=== PATIENT | female | born 1980 | race Caucasian/White ===

== ENCOUNTER 2016-07-14 11:13 | Outpatient (CLI) | payer OTHER | END 2016-07-14 11:14 | disposition home or self-care (01) | DX: R10.2 Pelvic and perineal pain (principal) ==

== ENCOUNTER 2016-08-06 08:00 | Outpatient (CLI) | payer OTHER | END 2016-08-06 23:59 | disposition home or self-care (01) | DX: R10.2 Pelvic and perineal pain (principal) ==

== ENCOUNTER 2016-08-08 06:13 | Day surgery (SDC) | payer OTHER ==
[2016-08-08] MEDS ORDERED: ceFAZolin 2 GM/50 ML 50 ML IV ONE (06:33)
[2016-08-08] MEDS ORDERED: LACTATED RINGERS 1,000 ML IV ONE ×3 (06:46→08:30)
[2016-08-08] MEDS ORDERED: SCOPOLAMINE PATCH TOP ONE (07:23)
[2016-08-08] MEDS ORDERED: KETOROLAC 30 MG/ML VIAL IVP ONE (08:00)
[2016-08-08] MEDS ORDERED: raNITIdine INJ 25 MG/ML VIAL IV ONE (08:00)
[2016-08-08] MEDS ORDERED: MIDAZOLAM 2 MG/2 ML VIAL IVP ONE (08:00)
[2016-08-08] MEDS ORDERED: fentaNYL 100 MCG/2 ML VIAL IVP ONE (08:00)
[2016-08-08] MEDS ORDERED: LIDOCAINE-MPF 2% 5 ML VIAL IM ONE (08:00)
[2016-08-08] MEDS ORDERED: PROPOFOL 200 MG/20 ML VIAL IVP ONE (08:00)
[2016-08-08] MEDS ORDERED: ESMOLOL 100 MG/10 ML VIAL IVP ONE (08:00)
[2016-08-08] MEDS ORDERED: DEXAMETHASONE 4 MG/ML VIAL IVP ONE (08:00)
[2016-08-08] MEDS ORDERED: METOCLOPRAMIDE 10 MG/2 ML VIAL IVP ONE (08:00)
[2016-08-08] MEDS ORDERED: ROCURONIUM 50 MG/5 ML VIAL IVP ONE (08:00)
[2016-08-08] MEDS ORDERED: ONDANSETRON 4 MG/2 ML VIAL IVP ONE (08:00)
[2016-08-08] MEDS ORDERED: diphenhydrAMINE INJ 50 MG/ML VIAL IVP ONE (08:00)
[2016-08-08] MEDS ORDERED: GLYCOPYRROLATE 1 MG/5 ML VIAL IVP ONE (08:00)
[2016-08-08] MEDS ORDERED: BUPIVACAINE 0.25% PF 30 ML VIAL SUBQ ONE ×2 (08:09)
[2016-08-08] MEDS: MEPERIDINE 50 MG/ML SYRINGE ONE ×2 (09:00→09:15)
[2016-08-08] MEDS ORDERED: MIDAZOLAM 2 MG/2 ML VIAL ONE (09:37)
[2016-08-08] MEDS ORDERED: oxyCOD/ACETAMIN 5 MG/325 MG TABLET PO ONE (11:22)
== END 2016-08-08 06:14 | disposition home or self-care (01) ==
PROC: 0U5F4ZZ Destruction of Cul-de-sac, Percutaneous Endoscopic Approach (ICD-10-PCS; principal; 2016-08-08 07:30)
DX: N83.8 Other noninflammatory disorders of ovary, fallopian tube and broad ligament (principal); N73.6 Female pelvic peritoneal adhesions (postinfective); N80.3 Endometriosis of pelvic peritoneum; I47.1 Supraventricular tachycardia; F32.9 Major depressive disorder, single episode, unspecified; F41.9 Anxiety disorder, unspecified
CPT/HCPCS: 58662; 93005; A9270; J0690; J3490; J7120

== ENCOUNTER 2017-04-01 11:19 | Emergency (ER) | payer OTHER ==
[2017-04-01 11:31] VITALS: BP 124/76
--- NOTE | 2017-04-01 13:41 | ED Physician Documentation ---
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 She has had some light pink discharge since then. She is also noticed the fullness to her breasts reducing. Review of Systems Constitutional: denies: Fever Eyes: denies: Decreased vision Ears: denies: Ear pain Nose: reports: Congestion Throat: denies: Sore throat Cardiac: denies: Chest pain / pressure, Palpitations Respiratory: reports: Cough. denies: Dyspnea GI: reports: Nausea. denies: Abdominal Pain, Vomiting, Constipation, Diarrhea : reports: Discharge. denies: Dysuria, Frequency PD PAST MEDICAL HISTORY - Past Medical History Past Medical History: Yes Cardiovascular: None Respiratory: None Endocrine/Autoimmune: None GI: None : None HEENT: None Psych: Depression, Anxiety Musculoskeletal: None Derm: None - Past Surgical History Past Surgical History: Yes Ortho: Other - Present Medications Home Medications: Ambulatory Orders Medication Instructions Recorded Confirmed Fexofenadine HCl [Sulma Allergy] 180 mg PO DAILY 09/25/14 08/06/16 Sertraline HCl [Zoloft] 150 mg PO DAILY 09/25/14 08/06/16 - Allergies Allergies/Adverse Reactions: Allergies Allergy/AdvReac Type Severity Reaction Status Date / Time promethazine HCl * AdvReac Severe Anxiety Verified 04/01/17 11:31 [From Phenergan] - Social History Does the pt smoke?: No Smoking Status: Never smoker Does the pt drink ETOH?: No Does the pt have substance abuse?: No - Immunizations Immunizations are current?: Yes PD ED PE NORMAL - Vitals Vital signs reviewed: Yes (Normal) - General General: No acute distress, Well developed/nourished - HEENT HEENT: Atraumatic, PERRL, EOMI, Ears normal, Moist mucous membranes - Neck Neck: Supple, no meningeal sign - Cardiac Cardiac: RRR, No murmur - Respiratory Respiratory: No respiratory distress, Clear bilaterally - Abdomen Abdomen: Soft, Non tender - Back Back: No CVA TTP, No spinal TTP - Derm Derm: Normal color, Warm and dry, No rash - Extremities Extremities: No deformity, No edema - Neuro Neuro: No motor deficit, No sensory deficit - Psych Psych: Normal mood, Normal affect Results - Vitals Vitals: Vital Signs - 24 hr 04/01/17 11:27 Temperature 36.6 C Heart Rate 76 Respiratory 18 Rate Blood Pressure 124/76 O2 Saturation 100 Oxygen O2 Source Room air - Labs Labs: Laboratory Tests 04/01/17 04/01/17 11:45 11:45 Serum HCG, Qual Cancelled HCG, Quant 14126.00 - Rads (name of study) ob ultrasound Radiology: Prelim report reviewed (Impression: 7 week 5 day pole with no cardiac activity and irregular gestational sac consistent with intrauterine demise.), EMP read indepedently, See rad report PD MEDICAL DECISION MAKING - ED course Complexity details: reviewed results, re-evaluated patient, considered differential, d/w patient ED course: 36-year-old female with early appears to have loss with retained products. She has had prior miscarriage and she has not developed any type of cramping pain as yet. She will attempt to pass the products conservatively and will pursue intervention with her POWER GENERATION TECHNICIAN doctor next week if needed. Departure - Departure Disposition: 01 Home, Self Care Clinical Impression: Incomplete Condition: Stable Instructions: ED Miscarriage Incom Follow-Up: Barrie Mar MD [Primary Care Provider] - Fernando Dobbins MD [Provider Admit Priv/Credential] - Discharge Date/Time: 04/01/17 13:58
--- NOTE | 2017-04-02 16:18 | Ultrasound Report ---
FIRST TRIMESTER OB ULTRASOUND: 04/01/2017 CLINICAL INDICATION: Bleeding in early . TECHNIQUE: Transabdominal pelvic ultrasound performed for global evaluation. Transvaginal pelvic ultr asound performed for detailed evaluation. Real-time scanning performed and static images obtained. FINDINGS: The uterus is retroverted. There is a gestational sac with pole within the endometri al canal. No cardiac activity is seen. The gestational sac is irregular. The appearance is comp atible with an in progress. The ovaries are unremarkable, with the right measuring 3.6 x 2.5 x 2.4 cm, and the left measuring 3.2 x 2.0 x 1.9 cm. No free fluid is present. IMPRESSION: IRREGULAR GESTATIONAL SAC. NO CARDIAC MOTION IDENTIFIED, COMPATIBLE WITH INTRAUTER INE DEMISE/ IN PROGRESS. CRITICAL RESULT: RESULTS CALLED TO DR. HARLEY IN THE EMERGENCY DEPARTMENT ON 04/01/2017 AT 1 PM. JOB #: [id number] EXT JOB #:[id number]
== END 2017-04-01 13:58 | disposition home or self-care (01) ==
LOC: ED 11:19
DX: O03.4 Incomplete spontaneous abortion without complication (principal)
CPT/HCPCS: 36415; 76801; 76817; 84702; 84703; 99283; 99284

== ENCOUNTER 2017-04-08 10:17 | Outpatient (CLI) | payer OTHER | END 2017-04-08 10:18 | disposition home or self-care (01) | LOC: LAB 10:17 | PROVIDERS: ATTEND Obstetrics & Gynecology | DX: O03.9 Complete or unspecified spontaneous abortion without complication (principal) | CPT/HCPCS: 36415; 84702 ==

== ENCOUNTER 2017-04-16 09:10 | Outpatient (CLI) | payer OTHER | END 2017-04-16 09:11 | disposition home or self-care (01) | LOC: LAB 09:10 | PROVIDERS: ATTEND Obstetrics & Gynecology | DX: O03.9 Complete or unspecified spontaneous abortion without complication (principal) | CPT/HCPCS: 36415; 84702 ==

== ENCOUNTER 2019-01-05 08:00 | Outpatient (CLI) | payer OTHER ==
[2019-01-05 18:36] LABS: BASOPHILS # (AUTO) 0.1 10^3/uL (0.0-0.1); BASOPHILS % (AUTO) 0.7 %; EOSINOPHILS # (AUTO) 0.2 10^3/uL (0.0-0.7); HGB - HEMOGLOBIN 11.7 g/dL (12.0-16.0); LYMPHOCYTES # (AUTO) 1.9 10^3/uL (1.5-3.5); LYMPHOCYTES % (AUTO) 21.9 %; MEAN CORPUSCULAR HEMOGLOBIN 26.1 pg (27.0-31.0); MEAN CORPUSCULAR HGB CONC 31.1 g/dL (32.0-36.0); MEAN CORPUSCULAR VOLUME 83.7 fL (81.0-99.0); MONOCYTES # (AUTO) 0.4 10^3/uL (0.0-1.0); MONOCYTES % (AUTO) 5.1 %; NEUTROPHILS % (AUTO) 69.4 %; PLT - PLATELET COUNT 265 10^3/uL (130-450); RED BLOOD COUNT 4.49 10^6/uL (4.20-5.40); WHITE BLOOD COUNT 8.7 x10^3/uL (4.8-10.8)
[2019-01-05 19:18] LABS: ALBUMIN 3.8 g/dL (3.2-5.5); ALBUMIN/GLOBULIN RATIO 1.2 (1.0-2.2); ALKALINE PHOSPHATASE 48 IU/L (42-121); ALT ALANINE AMINOTRANSFERASE 15 IU/L (10-60); AST ASPARTATE AMINOTRANSFERASE 15 IU/L (10-42); BILIRUBIN,TOTAL 0.7 mg/dL (0.2-1.0); BUN - BLOOD UREA NITROGEN 12 mg/dL (6-20); CALCIUM 8.6 mg/dL (8.5-10.3); CARBON DIOXIDE - CO2 19 mmol/L (21-32); CHLORIDE 110 mmol/L (101-111); CHOL/HDL RATIO 3.3 (<4.4); CHOLESTEROL 169 mg/dL; CREATININE 0.6 mg/dL (0.4-1.0); GFR - MDRD 111 (>89); GLUCOSE 105 mg/dL (70-100); HDL CHOLESTEROL 51 mg/dL; LDL CHOLESTEROL,CALCULATED 95 mg/dL; LDL/HDL RATIO 1.9 (<4.4); SODIUM 139 mmol/L (135-145); VLDL CHOLESTEROL 23 mg/dL
== END 2019-01-05 23:59 | disposition home or self-care (01) ==
LOC: LAB.N 08:00
PROVIDERS: ATTEND Family Medicine
DX: Z00.00 Encounter for general adult medical examination without abnormal findings (principal)
CPT/HCPCS: 36415; 80050; 80061; 83721

== ENCOUNTER 2019-02-02 16:56 | Outpatient (CLI) | payer OTHER ==
--- NOTE | 2019-02-03 15:08 | Ultrasound Report ---
Reason: TEST POSITIVE Procedure Date: 02/02/2019 Accession Number: [id number] / [id number] Procedure: US - OB First Trimester CPT Code: FULL RESULT: EXAM: FIRST TRIMESTER OBSTETRIC ULTRASOUND (Less than 11 weeks) EXAM DATE: 02/02/2019 04:40 PM. CLINICAL HISTORY: TEST POSITIVE. LMP: 12/08/2018. COMPARISONS: OB FIRST TRIMESTER 04/01/2017 12:09 PM. TECHNIQUE: Transabdominal and transvaginal ultrasound examination with static image documentation. CLINICAL DATES: EGA 8 weeks 0 days with SURAJ 09/14/2019 based on LMP. ASSESSMENT: Gestational Sac: Single intrauterine. Mean gestational sac diameter: 23 mm = 7 weeks 2 days. Embryo: CRL (crown-rump length) 18 mm = 8 weeks 2 days. Cardiac activity: Not visualized. Yolk sac: 4 mm. Amniotic fluid: Not accurately assessed at this gestational age. Early placenta: Not visible at this gestational age. Other: Moderate perigestational fluid collection measuring up to 2.2 x 2.5 cm. MATERNAL STRUCTURES: Uterus: Retroverted. Unremarkable. Cervix: Closed. Right Ovary/Adnexa: The ovary measures 2.0 x 1.3 x 1.3 cm, volume 1.7 cc. Unremarkable. Left Ovary/Adnexa: The ovary measures 3.2 x 1.2 x 0.8 cm, volume 1.5 cc. Unremarkable. Free Fluid: None. Other: None. IMPRESSION: 1. Single intrauterine at EGA 8 weeks 2 days with SURAJ 09/12/2019 based on crown-rump length, which is concordant with clinical dates. 2. Embryonic cardiac activity is not detected. This is concerning for failed first trimester . Recommend correlation with serial quantitative beta-hCG with short-term follow-up imaging as indicated. 3. Moderate perigestational fluid collection. RADIA
== END 2019-02-02 16:57 | disposition home or self-care (01) ==
LOC: DI 16:56
PROVIDERS: ATTEND Family Medicine
DX: Z32.01 Encounter for pregnancy test, result positive (principal)
CPT/HCPCS: 76801; 76817

== ENCOUNTER 2019-02-04 15:15 | Outpatient (CLI) | payer OTHER | END 2019-02-04 15:16 | disposition home or self-care (01) | LOC: LAB.N 15:15 | PROVIDERS: ATTEND Family Medicine | DX: N91.2 Amenorrhea, unspecified (principal) | CPT/HCPCS: 36415; 84702 ==

== ENCOUNTER 2019-02-17 14:24 | Outpatient (CLI) | payer OTHER | END 2019-02-17 23:59 | disposition home or self-care (01) | LOC: LAB.N 14:24 | PROVIDERS: ATTEND Obstetrics & Gynecology | DX: O03.9 Complete or unspecified spontaneous abortion without complication (principal) | CPT/HCPCS: 36415; 84702 ==

== ENCOUNTER 2019-02-26 09:54 | Outpatient (CLI) | payer OTHER | END 2019-02-26 23:59 | disposition home or self-care (01) | LOC: LAB.N 09:54 | PROVIDERS: ATTEND Obstetrics & Gynecology | DX: O03.9 Complete or unspecified spontaneous abortion without complication (principal) | CPT/HCPCS: 36415; 84702 ==

== ENCOUNTER 2019-03-03 08:00 | Outpatient (CLI) | payer OTHER ==
[2019-03-03 22:02] LABS: TRICHOMONAS VAGINALIS DNA NEGATIVE (NEGATIVE)
== END 2019-03-03 23:59 | disposition home or self-care (01) ==
LOC: LAB.R 08:00
PROVIDERS: ATTEND Obstetrics & Gynecology
DX: Z30.9 Encounter for contraceptive management, unspecified (principal)
CPT/HCPCS: 87491; 87591; 87661

== ENCOUNTER 2019-12-31 08:15 | Outpatient (CLI) | payer OTHER | END 2019-12-31 23:59 | disposition home or self-care (01) | LOC: LAB 08:15 | PROVIDERS: ATTEND Family Medicine | DX: Z20.828 Contact with and (suspected) exposure to other viral communicable diseases (principal) | CPT/HCPCS: 81599 ==

== ENCOUNTER 2020-01-02 11:05 | Emergency (ER) | payer OTHER ==
[2020-01-02] MEDS ORDERED: SODIUM CHLORIDE 0.9% 2,000 ML IV STA (12:19)
[2020-01-02] MEDS ORDERED: HYDROmorphone 1 MG/ML CARPUJECT IVP STA (12:37)
--- NOTE | 2020-01-02 12:46 | ED Physician Documentation ---
History of Present Illness - Stated complaint Stated Complaint: HEADACHE/DIZZINESS - Chief complaint Chief Complaint: General - History obtained from History obtained from: Patient - History of Present Illness Timing: How many days ago (3) Pain level max: 10 Pain level now: 10 - Additonal information Additional information: 39-year-old female presents the emergency department stating that she had a lumbar puncture performed 3 days ago at [facility] in [place]. This was for papilledema and possible increased intracranial pressure. Her opening pressure was reportedly 27, the removed 18 mL's of CSF and dropped her pressure down to 13. Has had increasing headaches over the past 3 days. Tried Toradol and Reglan without relief. Has been taking Excedrin with caffeine at home without relief. Was seen at [facility] last night and given IV fluids as well as Toradol, without relief. She is unable to stand fully up. It was a postural headache. Feels better lying flat. No fevers. Review of Systems Ten Systems: 10 systems reviewed and negative Constitutional: denies: Fever, Chills Eyes: denies: Decreased vision, Photophobia Ears: denies: Ear pain Throat: denies: Sore throat Cardiac: denies: Chest pain / pressure GI: denies: Abdominal Pain, Nausea, Vomiting, Diarrhea Skin: denies: Rash Musculoskeletal: denies: Neck pain, Back pain Neurologic: denies: Focal weakness, Numbness, Difficulty speaking, Confused, Altered mental status, Head injury, LOC PD PAST MEDICAL HISTORY - Past Medical History Past Medical History: Yes Cardiovascular: None Respiratory: None Neuro: Headaches Endocrine/Autoimmune: None GI: None 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 : None HEENT: None Psych: Depression, Anxiety Musculoskeletal: None Derm: None - Past Surgical History Past Surgical History: Yes Ortho: Other - Present Medications Home Medications: Ambulatory Orders Medication Instructions Recorded Confirmed Fexofenadine HCl [Sulma Allergy] 180 mg PO DAILY 09/25/14 08/06/16 Sertraline HCl [Zoloft] 150 mg PO DAILY 09/25/14 08/06/16 Butalb/Acetaminophen/Caffeine 1 cap PO Q8H PRN #10 capsule 01/02/20 [Fioricet 50-300-40 mg Capsule] Promethazine [Phenergan] 25 mg PO Q6H PRN #10 tab 01/02/20 - Allergies Allergies/Adverse Reactions: Allergies Allergy/AdvReac Type Severity Reaction Status Date / Time promethazine HCl * AdvReac Severe Anxiety Verified 04/01/17 11:31 [From Phenergan] metoclopramide [From Reglan] AdvReac Anxiety Verified 01/02/20 11:18 - Social History Does the pt smoke?: No Smoking Status: Never smoker Does the pt drink ETOH?: No Does the pt have substance abuse?: No - Immunizations Immunizations are current?: Yes PD ED PE NORMAL - Vitals Vital signs reviewed: Yes - General General: Alert and oriented X 3, No acute distress, Well developed/nourished - HEENT HEENT: Atraumatic, PERRL, Moist mucous membranes - Neck Neck: Supple, no meningeal sign - Cardiac Cardiac: RRR, Strong equal pulses - Respiratory Respiratory: No respiratory distress, Clear bilaterally - Abdomen Abdomen: Soft, Non tender, Non distended - Back Back: No spinal TTP - Derm Derm: Warm and dry - Extremities Extremities: No edema - Neuro Neuro: Alert and oriented X 3, district wire chief 2-12 intact, No motor deficit, No sensory deficit, Normal speech - Psych Psych: Normal mood, Normal affect Results - Vitals Vitals: Vital Signs - 24 hr 01/02/20 01/02/20 01/02/20 11:18 12:21 13:51 Temperature 36.6 C Heart Rate 85 86 80 Respiratory 16 96 H 18 Rate Blood Pressure 138/82 H 132/80 H 136/74 H O2 Saturation 98 97 99 01/02/20 15:16 Temperature 36.4 C L Heart Rate 84 Respiratory 16 Rate Blood Pressure 128/78 O2 Saturation 99 Oxygen O2 Source Room air PD MEDICAL DECISION MAKING - ED course Complexity details: reviewed results, re-evaluated patient, considered differential, d/w patient, d/w trousseau consultant ED course: Patient will require a blood patch. Discussed the case with anesthesia who recommends consulting neurology first. I spoke with neuro ophthalmology on-call for Dr. Gomez at [facility], they state that there are no issues receiving a blood patch at this time. Traci Miranda CRNA will come and perform the blood patch. Patient had good relief of her headache with a sphenopalatine ganglion block with 4% lidocaine. Anesthesia performed a blood patch. Patient tolerated well. Feels much better. Will prescribe Fioricet for home in case her headache returns. Patient counseled regarding signs and symptoms for which I believe and urgent re-evaluation would be necessary. Patient with good understanding of and agreement to plan and is comfortable going home at this time This document was made in part using voice recognition software. While efforts are made to proofread this document, sound alike and grammatical errors may occur. Departure - Departure Disposition: 01 Home, Self Care Clinical Impression: Post-dural puncture headache Condition: Good Instructions: ED Headache Post Spinal Tap W Patch Follow-Up: Amita Pelaez DO [Primary Care Provider] - Filiberto Gomez MD [Physician No Access] - 01/04/20 Prescriptions: Butalb/Acetaminophen/Caffeine [Fioricet 50-300-40 mg Capsule] 1 cap PO Q8H PRN #10 capsule PRN Reason: headache Promethazine [Phenergan] 25 mg PO Q6H PRN #10 tab PRN Reason: Nausea / Vomiting Comments: Please follow-up with Dr. Gomez's office on Saturday. Return if you worsen. Rest today and lie flat as much as possible. Discharge Date/Time: 01/02/20 15:16
[2020-01-02] MEDS ORDERED: LIDOCAINE TOPICAL 4% 50 ML BOTTLE TOP STA (12:48)
[2020-01-02] MEDS ORDERED: MIDAZOLAM 2 MG/2 ML VIAL IVP STA (13:22)
--- NOTE | 2020-01-02 14:13 | ANESTHESIA PROCEDURE NOTE ---
Diagnosis: spinal headache post LP Procedure: Epidural blood patch Height and Weight: Height 5 ft 4 in Weight (kg) 96.162 kg Body Mass Index 36.3 Vital Signs: Temp Pulse Resp BP Pulse Ox 36.6 C 85 16 138/82 H 98 01/02/20 11:18 01/02/20 11:18 01/02/20 11:18 01/02/20 11:18 01/02/20 11:18 Allergies promethazine HCl * [From Phenergan] Adverse Reaction (Severe, Verified 04/01/17 11:31) Anxiety IV Phenergan Anxiety and Agitation metoclopramide [From Reglan] Adverse Reaction (Verified 01/02/20 11:18) Anxiety Requesting Provider: Dr. Robert ASA classification: 2-Mild systemic disease Is this case an emergency?: Yes Anes. Monitoring and Equipment: Sterile prep and drape Anes. Procedure Start Time: 13:10 Anes. Procedure Stop Time: 13:35 Procedure Notes: Patient consented for epidural blood patch, sitting, chloroprep to lumbar area. Local 1% 5cc, L4/5 interspace with 17g Tu needle, ROSARIO with NS at 10cm, blood drawn sterile technique by PRINTING MACHINIST from left AC. Blood injected easily through epidural needle to total 20cc, no patient complaints. Patient states STEVENS 1/10 pain post procedure. Instructed to lay flat for 1 hour and then no heavy lifting straining fro 24 hours. Call if STEVENS returns and follow up with neurologist on Saturday.
[2020-01-02 15:18] VITALS: BP 128/78
== END 2020-01-02 15:16 | disposition home or self-care (01) ==
LOC: ED 11:05
DX: G97.1 Other reaction to spinal and lumbar puncture (principal)
CPT/HCPCS: 96374; 96375; 99283; 99285; J1170; 62273; 80048; 85025

== ENCOUNTER 2020-02-16 12:19 | Outpatient (CLI) | payer OTHER ==
--- NOTE | 2020-02-17 12:38 | Mammography Report ---
BILATERAL DIGITAL SCREENING MAMMOGRAM WITH AUGMENTATION: 02/16/2020 CLINICAL: Baseline exam. No prior exams were available for comparison. The tissue of both breasts is heterogeneously dense. T his may lower the sensitivity of mammography. Bilateral breast implants are intact. No significant masses, calcifications, or other findings are seen in either breast. IMPRESSION: NEGATIVE There is no mammographic evidence of malignancy. A 1 year screening mammogram is recommended. This exam was interpreted at Station ID: [id number]. NOTE: For mammograms, a report in lay terms will be sent to the patient. Approximately 15% of breast malignancies will not be visualized mammographically. In the management of a palpable breast mass, a negative mammogram must not discourage biopsy of a clinically suspicious lesion. Electronically Signed By: Hever li/virgil:02/16/2020 13:39:21 ACR BI-RADS Category 1: Negative 3341F PARENCHYMAL PATTERN: (D) - The breast(s) demonstrate(s) heterogeneously dense fibroglandular eitan colby. BI-RADS CATEGORY: (1) - 1 RECOMMENDATION: (ANNUAL) - Recommend routine annual screening mammography. [id number] 1 year screening LATERALITY: (B)
== END 2020-02-16 12:20 | disposition home or self-care (01) ==
LOC: DI.N 12:19
DX: Z12.31 Encounter for screening mammogram for malignant neoplasm of breast (principal); Z98.82 Breast implant status
CPT/HCPCS: 77067

== ENCOUNTER 2020-03-28 13:13 | Outpatient (CLI) | payer OTHER ==
--- NOTE | 2020-03-28 14:45 | CT Report ---
PROCEDURE: PELVIS WO INDICATIONS: FRACTURE OF COCCYX, INITIAL ENCOUNTER FOR CLOSED F TECHNIQUE: Noncontrast 3 mm axial sections acquired through the bony pelvis, with coronal and sagittal reformatt ing. For radiation dose reduction, the following was used: automated exposure control, adjustment of mA and/or kV according to patient size. COMPARISON: Prior pelvis plain film imaging 03/28/2020 reviewed.. FINDINGS: Image quality: Excellent. Bones: Previously identified pars interarticularis defects are seen at L5, allowing grade 2 anteroli sthesis of L5 on S1 with disc height reduction and also facet osteoarthritis contributing to likely l ikelihood of significant spinal and foraminal stenosis at this level Additionally, there is a nondisplaced diagonal fracture through the fifth sacral that can be visualiz ed on the sagittal reformatting should imaging from source axial data. This fracture is definite, but subtle. No adjacent soft tissue edema or hematoma is found. Soft tissues: Retroverted uterus, IUD centrally located within the endometrial canal when this is ta mary grace into account. IMPRESSION: 1. Bilateral L5 pars interarticularis defects, combining with degenerative disc height reduction but is prominent at L5-S1 results in ligamentous laxity allowing anterolisthesis of L5 on S1, with result ant likelihood of significant spinal and foraminal stenosis at that level. This appears chronic. 2. Subtle but definite diagonal vertically oriented fracture involving the S5 vertebral segment, just above the sacrococcygeal junction. No associated hematoma. 3. Retroverted uterus, centrally positioned IUD. Reviewed by: Ruben Curiel MD on 03/28/2020 2:44 PM PDT Approved by: Ruben Curiel MD on 03/28/2020 2:44 PM PDT Station ID: [id number]
--- NOTE | 2020-03-28 15:12 | CT Report ---
PROCEDURE: LUMBAR SPINE WO INDICATIONS: FRACTURE OF COCCYX, INITIAL ENCOUNTER FOR CLOSED F TECHNIQUE: Noncontrast 3 mm thick sections acquired from the T12 level to the sacrum. Sagittal and coronal refo rmats were constructed. For radiation dose reduction, the following was used: automated exposure co ntrol, adjustment of mA and/or kV according to patient size. COMPARISON: None. FINDINGS: Image quality: Excellent. Bones: No acute vertebral body compression fractures. No suspicious lytic or blastic bony lesions. T12-L1: Normal in appearance. L1-L2: Normal in appearance. L2-L3: Normal in appearance. L3-L4: Normal in appearance. L4-L5: The disc height is well-preserved. Mild facet arthropathy is seen. There is mild to moderate bilateral neuroforaminal narrowing seen. No significant central canal narrowing is seen. L5-S1: Grade 1 anterolisthesis is seen at this level, with associated bilateral L5 pars defects. Mo derate to severe loss of disc height is seen. Endplate irregularity and sclerosis can be seen. Ther e is moderate to severe bilateral neuroforaminal narrowing seen at this level, left worse than right. Compression is seen upon the exiting nerve roots. No significant central canal narrowing is seen. Soft tissues: No retroperitoneal masses or hematomas. Visualized aorta is normal in caliber. An IU D is seen at the expected location. IMPRESSION: Focal lower lumbar spine degenerative changes are seen, with grade 1 anterolisthesis at L5-S1 with as sociated bilateral L5 pars defects. At L5-S1, there is moderate to severe bilateral neuroforaminal na rrowing seen, with associated exiting nerve root compression. Reviewed by: Baudilio Gaitan MD on 03/28/2020 2:11 PM RIKKI Approved by: Baudilio Gaitan MD on 03/28/2020 2:11 PM AKCORNELL Station ID: [id number]
== END 2020-03-28 13:14 | disposition home or self-care (01) ==
LOC: DI 13:13
PROVIDERS: ATTEND Nurse Practitioner Family
DX: M53.3 Sacrococcygeal disorders, not elsewhere classified (principal); S32.2XXA Fracture of coccyx, initial encounter for closed fracture; M47.817 Spondylosis without myelopathy or radiculopathy, lumbosacral region; Z97.5 Presence of (intrauterine) contraceptive device
CPT/HCPCS: 72131; 72192; 72220

== ENCOUNTER 2020-03-28 13:34 | Outpatient (CLI) | payer OTHER ==
--- NOTE | 2020-03-29 06:50 | XRAY Report ---
PROCEDURE: Sacrum/Coccyx INDICATIONS: COCCYX PAIN TECHNIQUE: 3 views of the sacrum and coccyx acquired. COMPARISON: Lumbosacral spine CT scanning same day reviewed. FINDINGS: Bones: No acute or subacute fractures or dislocations, but there does appear to be bilateral pars in terarticularis defects (likely congenital) with grade 2 anterolisthesis of L5 on S1 and also moderate ly severe degenerative disc height reduction at this level, in a pattern most likely associated with significant spinal and foraminal stenosis. No suspicious bony lesions. Soft tissues: Visualized bowel gas pattern is normal. No suspicious soft tissue densities. Note is made of a centrally positioned IUD likely associated with retroversion of the uterus by position on the lateral view IMPRESSION: Bilateral pars interarticularis defects at L5-S1 allowing anterolisthesis grade 2 of L5 on S1. Degene rative changes at the disc space and facet joint areas at this level are likely associated with signi ficant spinal and foraminal stenosis. IUD as discussed. Reviewed by: Ruben Curiel MD on 03/28/2020 1:37 PM PDT Approved by: Ruben Curiel MD on 03/28/2020 1:37 PM PDT Station ID: [id number]
== END 2020-03-28 23:59 | disposition home or self-care (01) ==
LOC: DI.WCP 13:34
PROVIDERS: ATTEND Nurse Practitioner Family
DX: M53.3 Sacrococcygeal disorders, not elsewhere classified (principal); M47.817 Spondylosis without myelopathy or radiculopathy, lumbosacral region; Z97.5 Presence of (intrauterine) contraceptive device
CPT/HCPCS: 72220

== ENCOUNTER 2020-09-15 14:09 | Outpatient (CLI) | payer OTHER ==
[2020-09-15 17:34] LABS: BASOPHILS # (AUTO) 0.1 10^3/uL (0.0-0.1); BASOPHILS % (AUTO) 0.6 %; EOSINOPHILS # (AUTO) 0.1 10^3/uL (0.0-0.7); EOSINOPHILS % (AUTO) 1.7 %; HCT - HEMATOCRIT 41.1 % (37.0-47.0); HGB - HEMOGLOBIN 13.2 g/dL (12.0-16.0); LYMPHOCYTES # (AUTO) 2.2 10^3/uL (1.5-3.5); LYMPHOCYTES % (AUTO) 28.2 %; MEAN CORPUSCULAR HEMOGLOBIN 27.4 pg (27.0-31.0); MEAN CORPUSCULAR HGB CONC 32.1 g/dL (32.0-36.0); MEAN CORPUSCULAR VOLUME 85.3 fL (81.0-99.0); MEAN PLATELET VOLUME 10.6 fL (7.9-10.8); MONOCYTES # (AUTO) 0.4 10^3/uL (0.0-1.0); MONOCYTES % (AUTO) 5.5 %; NEUTROPHILS # (AUTO) 4.9 10^3/uL (1.5-6.6); NEUTROPHILS % (AUTO) 63.6 %; PLT - PLATELET COUNT 255 10^3/uL (130-450); RED BLOOD COUNT 4.82 10^6/uL (4.20-5.40); RED CELL DISTRIBUTION WIDTH 13.2 % (12.0-15.0); WHITE BLOOD COUNT 7.7 x10^3/uL (4.8-10.8)
[2020-09-15 17:40] LABS: BILIRUBIN,URINE NEGATIVE (NEGATIVE); GLUCOSE, URINE (UA) NEGATIVE (NEGATIVE); KETONES,URINE (UA) NEGATIVE (NEGATIVE); LEUKOCYTE ESTERASE, URINE NEGATIVE (NEGATIVE); NITRITE,URINE NEGATIVE (NEGATIVE); OCCULT BLOOD,URINE NEGATIVE (NEGATIVE); PROTEIN,URINE NEGATIVE (NEGATIVE); UROBILINOGEN,URINE 0.2 (NORMAL) E.U./dL (NORMAL)
[2020-09-15 17:41] LABS: INR 1.1 (0.8-1.2); PT - PROTHROMBIN TIME 12.7 secs (9.9-12.6)
[2020-09-15 17:48] LABS: BACTERIA,URINE None Seen /HPF (None Seen); CLARITY,URINE CLEAR (CLEAR); RBC,URINE None Seen /HPF (0-5); SQUAMOUS EPITHELIAL CELL,UR RARE Squamous (<= Few); WBC,URINE 0-3 /HPF (0-5)
[2020-09-15 17:53] LABS: CALCIUM 9.6 mg/dL (8.5-10.3); CREATININE 0.8 mg/dL (0.4-1.0); POTASSIUM 3.6 mmol/L (3.5-5.0)
[2020-09-15 18:18] LABS: ESTIMATED AVERAGE GLUCOSE 94 mg/dL (70-100); HEMOGLOBIN A1c% 4.9 % (4.27-6.07)
[2020-09-16 12:07] LABS: PARTIAL THROMBOPLASTIN TIME 28.6 secs (24.9-33.3)
== END 2020-09-15 23:59 | disposition home or self-care (01) ==
LOC: LAB.N 14:09
PROVIDERS: ATTEND Family Medicine
DX: M54.16 Radiculopathy, lumbar region (principal)
CPT/HCPCS: 36415; 80048; 81001; 83036; 85025; 85610; 85730; 87086; 87640

== ENCOUNTER 2020-09-16 08:00 | Outpatient (CLI) | payer OTHER | END 2020-09-16 23:59 | disposition home or self-care (01) | LOC: LAB.N 08:00 | PROVIDERS: ATTEND Family Medicine | DX: M54.16 Radiculopathy, lumbar region (principal) | CPT/HCPCS: 87640 ==

== ENCOUNTER 2020-10-20 10:25 | Outpatient (CLI) | payer OTHER ==
[2020-10-20 11:39] LABS: BASOPHILS # (AUTO) 0.1 10^3/uL (0.0-0.1); BASOPHILS % (AUTO) 0.8 %; EOSINOPHILS # (AUTO) 0.3 10^3/uL (0.0-0.7); EOSINOPHILS % (AUTO) 3.6 %; HGB - HEMOGLOBIN 12.2 g/dL (12.0-16.0); LYMPHOCYTES # (AUTO) 1.7 10^3/uL (1.5-3.5); LYMPHOCYTES % (AUTO) 21.2 %; MEAN CORPUSCULAR HEMOGLOBIN 27.2 pg (27.0-31.0); MEAN CORPUSCULAR HGB CONC 31.3 g/dL (32.0-36.0); MEAN CORPUSCULAR VOLUME 86.9 fL (81.0-99.0); MEAN PLATELET VOLUME 9.8 fL (7.9-10.8); MONOCYTES # (AUTO) 0.5 10^3/uL (0.0-1.0); MONOCYTES % (AUTO) 6.6 %; NEUTROPHILS # (AUTO) 5.2 10^3/uL (1.5-6.6); PLT - PLATELET COUNT 280 10^3/uL (130-450); RED BLOOD COUNT 4.49 10^6/uL (4.20-5.40); RED CELL DISTRIBUTION WIDTH 12.9 % (12.0-15.0); WHITE BLOOD COUNT 7.8 x10^3/uL (4.8-10.8)
== END 2020-10-20 10:26 | disposition home or self-care (01) ==
LOC: LAB.N 10:25
PROVIDERS: ATTEND Physician Assistant
DX: M48.061 Spinal stenosis, lumbar region without neurogenic claudication (principal)
CPT/HCPCS: 36415; 85025; 85651; 86140

== ENCOUNTER 2021-02-06 10:12 | Outpatient (CLI) | payer OTHER ==
--- NOTE | 2021-02-07 14:34 | Mammography Report ---
BILATERAL DIGITAL SCREENING MAMMOGRAM 3D/2D WITH AUGMENTATION: 02/06/2021 CLINICAL: Routine screening. Comparison is made to exam dated: 02/16/2020 mammogram - [facility]. The tissue of both breasts is heterogeneously dense. This may lower the sensitivity of mammography. Bilateral breast implants are intact. No significant masses, calcifications, or other findings are seen in either breast. There has been no significant interval change. IMPRESSION: NEGATIVE There is no mammographic evidence of malignancy. A 1 year screening mammogram is recommended. This exam was interpreted at Station ID: [id number]. NOTE: For mammograms, a report in lay terms will be sent to the patient. Approximately 15% of breast malignancies will not be visualized mammographically. In the management of a palpable breast mass, a negative mammogram must not discourage biopsy of a clinically suspicious lesion. Electronically Signed By: Clemente Aguila M.D. ddp/penrad:02/06/2021 11:51:15 ACR BI-RADS Category 1: Negative 3341F PARENCHYMAL PATTERN: (D) - The breast(s) demonstrate(s) heterogeneously dense fibroglandular eitan colby. BI-RADS CATEGORY: (1) - 1 RECOMMENDATION: (ANNUAL) - Recommend routine annual screening mammography. [id number] 1 year screening LATERALITY: (B)
== END 2021-02-06 10:13 | disposition home or self-care (01) ==
LOC: DI.N 10:12
DX: Z12.31 Encounter for screening mammogram for malignant neoplasm of breast (principal); Z98.82 Breast implant status

== ENCOUNTER 2021-05-03 07:50 | Outpatient (CLI) | payer OTHER | END 2021-05-03 23:59 | disposition home or self-care (01) | LOC: LAB.N 07:50 | PROVIDERS: ATTEND Family Medicine | DX: Z20.822 Contact with and (suspected) exposure to COVID-19 (principal) ==

== ENCOUNTER 2021-09-13 16:33 | Outpatient (CLI) | payer OTHER | END 2021-09-13 16:34 | disposition home or self-care (01) | LOC: LAB.N 16:33 | PROVIDERS: ATTEND Nurse Practitioner | DX: R30.0 Dysuria (principal) | CPT/HCPCS: 87086 ==

== ENCOUNTER 2021-10-02 11:21 | Outpatient (CLI) | payer OTHER ==
[2021-10-02 18:26] LABS: BASOPHILS # (AUTO) 0.1 10^3/uL (0.0-0.1); BASOPHILS % (AUTO) 0.7 %; EOSINOPHILS # (AUTO) 0.1 10^3/uL (0.0-0.7); EOSINOPHILS % (AUTO) 1.2 %; HCT - HEMATOCRIT 41.5 % (37.0-47.0); LYMPHOCYTES # (AUTO) 1.9 10^3/uL (1.5-3.5); LYMPHOCYTES % (AUTO) 25.2 %; MEAN CORPUSCULAR HGB CONC 31.3 g/dL (32.0-36.0); MEAN CORPUSCULAR VOLUME 86.1 fL (81.0-99.0); MEAN PLATELET VOLUME 11.1 fL (7.9-10.8); MONOCYTES # (AUTO) 0.4 10^3/uL (0.0-1.0); MONOCYTES % (AUTO) 5.5 %; NEUTROPHILS # (AUTO) 5.1 10^3/uL (1.5-6.6); NEUTROPHILS % (AUTO) 66.9 %; PLT - PLATELET COUNT 245 10^3/uL (130-450); RED BLOOD COUNT 4.82 10^6/uL (4.20-5.40); RED CELL DISTRIBUTION WIDTH 13.6 % (12.0-15.0); WHITE BLOOD COUNT 7.7 x10^3/uL (4.8-10.8)
[2021-10-02 18:56] LABS: ALBUMIN 4.7 g/dL (3.2-5.5); ALBUMIN/GLOBULIN RATIO 1.5 (1.0-2.2); ALKALINE PHOSPHATASE 49 IU/L (42-121); ALT ALANINE AMINOTRANSFERASE 19 IU/L (10-60); AST ASPARTATE AMINOTRANSFERASE 15 IU/L (10-42); BILIRUBIN,TOTAL 0.7 mg/dL (0.2-1.0); BUN - BLOOD UREA NITROGEN 15 mg/dL (6-20); CALCIUM 9.1 mg/dL (8.5-10.3); CARBON DIOXIDE - CO2 23 mmol/L (21-32); CHLORIDE 104 mmol/L (101-111); CHOL/HDL RATIO 3.3 (<4.4); CHOLESTEROL 179 mg/dL; CREATININE 0.8 mg/dL (0.4-1.0); GFR - MDRD 79 (>89); GLUCOSE 94 mg/dL (70-100); HDL CHOLESTEROL 54 mg/dL; LDL CHOLESTEROL,CALCULATED 105 mg/dL; LDL/HDL RATIO 1.9 (<4.4); POTASSIUM 4.1 mmol/L (3.5-5.0); SODIUM 138 mmol/L (135-145); TOTAL PROTEIN 7.9 g/dL (6.7-8.2); TRIGLYCERIDES 102 mg/dL; VLDL CHOLESTEROL 20 mg/dL
== END 2021-10-02 11:22 | disposition home or self-care (01) ==
LOC: LAB.N 11:21
PROVIDERS: ATTEND Physician Assistant
DX: G43.911 Migraine, unspecified, intractable, with status migrainosus (principal); Z13.220 Encounter for screening for lipoid disorders; Z13.29 Encounter for screening for other suspected endocrine disorder
CPT/HCPCS: 36415; 80053; 80061; 83721; 84443; 85025

== ENCOUNTER 2022-03-26 08:00 | Outpatient (CLI) | payer OTHER ==
--- NOTE | 2022-03-26 11:46 | XRAY Report ---
PROCEDURE: Hand 3 View RT INDICATIONS: R HAND PX TECHNIQUE: 3 views of the hand(s) acquired. COMPARISON: None FINDINGS: Bones: No fractures or dislocations. No suspicious bony lesions. Joint space is maintained. No deg enerative changes. Soft tissues: No suspicious soft tissue calcifications. IMPRESSION: Normal right hand radiographs. Reviewed by: Ugo Fuentes MD on 03/26/2022 11:45 AM PDT Approved by: Ugo Fuentes MD on 03/26/2022 11:45 AM PDT Station ID: [id number]
== END 2022-03-26 23:59 | disposition home or self-care (01) ==
LOC: DI.N 08:00
PROVIDERS: ATTEND Physician Assistant
DX: M79.641 Pain in right hand (principal)

== ENCOUNTER 2022-05-14 08:00 | Outpatient (CLI) | payer OTHER ==
--- NOTE | 2022-05-15 14:07 | XRAY Report ---
PROCEDURE: Abdomen 2 View X-Ray INDICATIONS: GASTRITIS TECHNIQUE: 2 views of the abdomen were acquired. COMPARISON: CT lumbar spine and pelvis 03/28/2020 FINDINGS: Surgical changes and devices: Postsurgical changes are seen projecting over the lumbosacral spine. A n intrauterine device projects over the pelvis. Bowel: No pneumoperitoneum. The bowel gas pattern is normal. Moderate volume of stool is seen in t he colon. Soft tissues: No masses; visualized solid organ contours appear normal in size. No suspicious abdom inal calcifications. Scattered radiodensities projecting of the abdomen are most likely within the b owel given differences in positioning between projections. Bones: No suspicious bony abnormalities. IMPRESSION: Nonobstructive bowel gas pattern. No pneumoperitoneum. Moderate colonic stool. Reviewed by: Hever Hyatt MD on 05/15/2022 2:06 PM PST Approved by: Hever Hyatt MD on 05/15/2022 2:06 PM PST Station ID: [id number]
== END 2022-05-14 23:59 | disposition home or self-care (01) ==
LOC: DI.N 08:00
PROVIDERS: ATTEND Registered Nurse
DX: K29.70 Gastritis, unspecified, without bleeding (principal)
CPT/HCPCS: 36415; 80053; 81599; 82103; 82390; 83516; 83690; 85025; 85651; 86140; 86364; 86677

== ENCOUNTER 2022-05-14 16:57 | Outpatient (CLI) | payer OTHER ==
[2022-05-14 21:31] LABS: BASOPHILS % (AUTO) 0.5 %; EOSINOPHILS # (AUTO) 0.2 10^3/uL (0.0-0.7); EOSINOPHILS % (AUTO) 2.3 %; HCT - HEMATOCRIT 38.2 % (37.0-47.0); HGB - HEMOGLOBIN 11.9 g/dL (12.0-16.0); LYMPHOCYTES % (AUTO) 27.1 %; MEAN CORPUSCULAR HEMOGLOBIN 26.7 pg (27.0-31.0); MEAN CORPUSCULAR HGB CONC 31.2 g/dL (32.0-36.0); MEAN CORPUSCULAR VOLUME 85.8 fL (81.0-99.0); MEAN PLATELET VOLUME 10.8 fL (7.9-10.8); MONOCYTES # (AUTO) 0.4 10^3/uL (0.0-1.0); MONOCYTES % (AUTO) 5.5 %; NEUTROPHILS # (AUTO) 4.8 10^3/uL (1.5-6.6); NEUTROPHILS % (AUTO) 64.2 %; PLT - PLATELET COUNT 259 10^3/uL (130-450); RED BLOOD COUNT 4.45 10^6/uL (4.20-5.40); RED CELL DISTRIBUTION WIDTH 13.2 % (12.0-15.0); WHITE BLOOD COUNT 7.5 x10^3/uL (4.8-10.8)
[2022-05-14 21:46] LABS: ALBUMIN 4.4 g/dL (3.2-5.5); ALBUMIN/GLOBULIN RATIO 1.3 (1.0-2.2); ALKALINE PHOSPHATASE 47 IU/L (42-121); ALT ALANINE AMINOTRANSFERASE 15 IU/L (10-60); AST ASPARTATE AMINOTRANSFERASE 14 IU/L (10-42); BILIRUBIN,TOTAL 0.4 mg/dL (0.2-1.0); BUN - BLOOD UREA NITROGEN 14 mg/dL (6-20); CALCIUM 8.5 mg/dL (8.5-10.3); CARBON DIOXIDE - CO2 26 mmol/L (21-32); CHLORIDE 109 mmol/L (101-111); GFR - MDRD 61 (>89); GLUCOSE 77 mg/dL (70-100); LIPASE 85 U/L (22-51); POTASSIUM 3.7 mmol/L (3.5-5.0); SODIUM 141 mmol/L (135-145); TOTAL PROTEIN 7.7 g/dL (6.7-8.2)
[2022-05-14 22:47] LABS: CRP - C-REACTIVE PROTEIN < 1.0 mg/dL (0-1.0)
[2022-05-16 05:12] LABS: ALPHA-1-ANTITRYPSIN SERUM 138 mg/dL (101-187)
[2022-05-16 21:07] LABS: T-TRANSGLUTAMINASE (TTG) IGA <2 U/mL (0-3); T-TRANSGLUTAMINASE (TTG) IGG <2 U/mL (0-5)
== END 2022-05-14 16:58 | disposition home or self-care (01) ==
LOC: LAB.N 16:57
PROVIDERS: ATTEND Registered Nurse
DX: K29.70 Gastritis, unspecified, without bleeding (principal)
CPT/HCPCS: 36415; 80053; 81599; 82103; 82390; 83516; 83690; 85025; 85651; 86140

== ENCOUNTER 2022-05-15 08:22 | Outpatient (CLI) | payer OTHER ==
[2022-05-15 13:30] LABS: CHOL/HDL RATIO 3.6 (<4.4); CHOLESTEROL 154 mg/dL; HDL CHOLESTEROL 43 mg/dL; LDL CHOLESTEROL,CALCULATED 96 mg/dL; LDL/HDL RATIO 2.2 (<4.4); TRIGLYCERIDES 76 mg/dL; VLDL CHOLESTEROL 15 mg/dL
== END 2022-05-15 08:23 | disposition home or self-care (01) ==
LOC: LAB.N 08:22
PROVIDERS: ATTEND Registered Nurse
DX: K29.70 Gastritis, unspecified, without bleeding (principal)
CPT/HCPCS: 36415; 80061; 83721

== ENCOUNTER 2022-07-19 08:00 | Outpatient (CLI) | payer OTHER | END 2022-07-19 23:59 | disposition home or self-care (01) | LOC: LAB.N 08:00 | PROVIDERS: ATTEND Family Medicine | DX: N39.0 Urinary tract infection, site not specified (principal) | CPT/HCPCS: 87086; 87181 ==

== ENCOUNTER 2022-10-05 14:02 | Outpatient (CLI) | payer OTHER ==
[2022-10-05 17:42] LABS: BASOPHILS # (AUTO) 0.1 10^3/uL (0.0-0.1); EOSINOPHILS # (AUTO) 0.1 10^3/uL (0.0-0.7); EOSINOPHILS % (AUTO) 1.8 %; HCT - HEMATOCRIT 37.6 % (37.0-47.0); LYMPHOCYTES # (AUTO) 2.2 10^3/uL (1.5-3.5); LYMPHOCYTES % (AUTO) 35.4 %; MEAN CORPUSCULAR HEMOGLOBIN 27.4 pg (27.0-31.0); MEAN CORPUSCULAR HGB CONC 31.9 g/dL (32.0-36.0); MEAN CORPUSCULAR VOLUME 85.8 fL (81.0-99.0); MEAN PLATELET VOLUME 10.7 fL (7.9-10.8); MONOCYTES # (AUTO) 0.3 10^3/uL (0.0-1.0); MONOCYTES % (AUTO) 5.1 %; NEUTROPHILS # (AUTO) 3.5 10^3/uL (1.5-6.6); NEUTROPHILS % (AUTO) 56.1 %; PLT - PLATELET COUNT 226 10^3/uL (130-450); RED BLOOD COUNT 4.38 10^6/uL (4.20-5.40); RED CELL DISTRIBUTION WIDTH 13.2 % (12.0-15.0); WHITE BLOOD COUNT 6.3 x10^3/uL (4.8-10.8)
[2022-10-05 18:10] LABS: THYROID STIMULATING HORMONE 2.48 uIU/mL (0.34-5.60)
[2022-10-05 18:19] LABS: ALBUMIN 4.5 g/dL (3.2-5.5); ALBUMIN/GLOBULIN RATIO 1.7 (1.0-2.2); ALKALINE PHOSPHATASE 37 IU/L (42-121); ALT ALANINE AMINOTRANSFERASE 16 IU/L (10-60); AST ASPARTATE AMINOTRANSFERASE 15 IU/L (10-42); BILIRUBIN,TOTAL 0.7 mg/dL (0.2-1.0); BUN - BLOOD UREA NITROGEN 11 mg/dL (6-20); CALCIUM 8.5 mg/dL (8.5-10.3); CARBON DIOXIDE - CO2 23 mmol/L (21-32); CHLORIDE 110 mmol/L (101-111); CHOL/HDL RATIO 3.6 (<4.4); CHOLESTEROL 155 mg/dL; CREATININE 0.8 mg/dL (0.4-1.0); GFR - MDRD 78 (>89); GLUCOSE 85 mg/dL (70-100); HDL CHOLESTEROL 43 mg/dL; POTASSIUM 3.4 mmol/L (3.5-5.0); SODIUM 137 mmol/L (135-145); TOTAL PROTEIN 7.2 g/dL (6.7-8.2); TRIGLYCERIDES 37 mg/dL
== END 2022-10-05 14:03 | disposition home or self-care (01) ==
LOC: LAB.N 14:02
DX: K29.00 Acute gastritis without bleeding (principal); R94.4 Abnormal results of kidney function studies; R74.8 Abnormal levels of other serum enzymes; Z13.29 Encounter for screening for other suspected endocrine disorder
CPT/HCPCS: 36415; 80053; 80061; 83721; 84443; 85025

== ENCOUNTER 2023-09-17 08:00 | Outpatient (CLI) | payer OTHER ==
--- NOTE | 2023-09-17 16:02 | XRAY Report ---
PROCEDURE: Ankle 3 View RT INDICATIONS: RIGHT ANKLE PAIN TECHNIQUE: 3 views of the ankle were acquired. COMPARISON: MRI brain ankle 05/13/2023, x-ray ankle for 4:15 FINDINGS: Bones: No fractures or dislocations. Ankle mortise is normally aligned. No suspicious bony lesions . Surgical anchors are noted overlying the talus. Soft tissues: No tibiotalar joint effusion. Achilles tendon appears normal. IMPRESSION: No visualized acute fracture or dislocation. However, occult injury cannot be excluded. Recommend nicci rt interval imaging follow-up in 7-10 days as clinically indicated for additional evaluation. Reviewed by: Sarah Langley MD on 09/17/2023 4:01 PM PDT Approved by: Sarah Langley MD on 09/17/2023 4:01 PM PDT Station ID: [id number]
== END 2023-09-17 23:59 | disposition home or self-care (01) ==
LOC: DI.WOS 08:00
PROVIDERS: ATTEND Orthopaedic Surgery
DX: M25.571 Pain in right ankle and joints of right foot (principal)

== ENCOUNTER 2023-09-17 12:47 | Outpatient (CLI) | payer OTHER ==
--- NOTE | 2023-09-18 09:55 | Mammography Report ---
BILATERAL DIGITAL SCREENING MAMMOGRAM 3D/2D WITH AUGMENTATION: 09/17/2023 CLINICAL: Routine screening. Comparison is made to exams dated: 05/07/2022 mammogram, 02/06/2021 mammogram, and 02/16/2020 mammogra m - [facility]. Both breasts are heterogeneously dense, which may obscure small masses (category c / 51-75% glandular tissue). Bilateral breast implants are intact. No significant masses, calcifications, or other findings are seen in either breast. There has been no significant interval change. IMPRESSION: NEGATIVE There is no mammographic evidence of malignancy. A 1 year screening mammogram is recommended. Based on the Tyrer Cuzick model (a risk assessment model) the patient's lifetime risk is 10.4% and he r 10 year risk is 1.8%. According to the ACR, ACS, and NCCN guidelines, an annual breast MRI exam marina ng with mammogram is recommended if the patient's lifetime risk is 20% or greater. This exam was interpreted at Station ID: [id number]. NOTE: For mammograms, a report in lay terms will be sent to the patient. Approximately 15% of breast malignancies will not be visualized mammographically. In the management of a palpable breast mass, a negative mammogram must not discourage biopsy of a clinically suspicious lesion. Electronically Signed By: Geovanni [email or web address]:09/17/2023 18:02:35 ACR BI-RADS Category 1: Negative 3341F PARENCHYMAL PATTERN: (D) - The breast(s) demonstrate(s) heterogeneously dense fibroglandular eitan colby. BI-RADS CATEGORY: (1) - 1 RECOMMENDATION: (ANNUAL) - Recommend routine annual screening mammography. [id number] 1 year screening LATERALITY: (B)
== END 2023-09-17 12:48 | disposition home or self-care (01) ==
LOC: DI.N 12:47
DX: Z12.31 Encounter for screening mammogram for malignant neoplasm of breast (principal); R92.333 Mammographic heterogeneous density, bilateral breasts; Z98.82 Breast implant status